=== PATIENT | male | born 1955 | race Caucasian/White ===

== ENCOUNTER 2020-01-25 11:39 | Emergency (ER) | payer BC, OTHER ==
--- OUTSIDE RECORDS SUMMARY | 2020-01-25 12:05 | XMS REPORT | Continuity of Care Document ---
:1955 Author Organization [facility] t Address [address] [place] [address] Care Team Providers Name Role Phone Master MULTANI Attending Clinician Problems This patient has no known problems. Allergies, Adverse Reactions, Alerts This patient has no known allergies or adverse reactions. Medications This patient has no known medications. Procedures This patient has no known procedures. Encounters Start End Encounter Admission Attending Care Care Encounter Source Date/Time Date/Time Type Type Clinicians Facility Department ID 2019-08-09 2019-08-09 Refill JOSIE Thao [id number] 00:00:00 00:00:00 Gonzalo Jefry [id number] [place] [id number] Profess[facility] [phone] [facility] 2019-06-15 2019-06-15 Refill JOSIE Thao [id number] 00:00:00 00:00:00 Gonzalo Joneston [id number] [place] [id number] [facility] [phone] [facility] 220 Building 2019-02-11 2019-02-11 Office JOSIE Thao [id number] 09:00:50 09:52:56 Visit Gonzalo Jefry [id number] [place] [id number] [facility] [phone] [facility] 220 [facility] Results This patient has no known results.
--- NOTE | 2020-01-25 13:30 | EDPHYS ---
Physician Documentation [facility] Name: Epifanio Crockett Age: 64 yrs Sex: Male : 1955 Arrival Date: 01/25/2020 Time: 11:42 Bed 24 Private MD: ED Physician Delroy Kelsey HPI: 01/24 13:42 This 64 yrs old Male presents to ER via Ambulatory with complaints of Foot snw Problem. 13:42 Onset: The symptoms/episode began/occurred suddenly, 2 month(s) ago, and became snw persistent. Associated signs and symptoms: Pertinent positives: The patient does not have any pertinent positive signs or symptoms associated with pediatric illness. Modifying factors: The patient symptoms are alleviated by nothing. The patient has not experienced similar symptoms in the past. The patient has been recently seen by a physician: the patient's primary care provider, with similar presenting complaints, and apparently given a diagnosis of healed puncture wound with foreign body, X-rays were performed, pt was supposed to be sent to [facility] in [place]. Historical: - Allergies: 12:24 No Known Allergies; aa5 - PMHx: 12:24 Hypertension; Diabetes - NIDDM; Neuropathy; aa5 - PSHx: 12:24 shoulder; ankle; Hernia repair; aa5 - Immunization history:: Adult Immunizations unknown. - Social history:: Smoking status: Patient denies any tobacco usage or history of. ROS: 13:41 Constitutional: Negative for fever, chills, and weight loss, Eyes: Negative for injury, snw pain, redness, and discharge, ENT: Negative for injury, pain, and discharge, Neck: Negative for injury, pain, and swelling, Cardiovascular: Negative for chest pain, palpitations, and edema, Respiratory: Negative for shortness of breath, cough, wheezing, and pleuritic chest pain, Abdomen/GI: Negative for abdominal pain, nausea, vomiting, diarrhea, and constipation, Back: Negative for injury and pain, : Negative for injury, bleeding, discharge, and swelling, MS/Extremity: Negative for injury and deformity, Neuro: Negative for headache, weakness, numbness, tingling, and seizure, Psych: Negative for depression, anxiety, suicide ideation, homicidal ideation, and hallucinations. 13:41 Skin: Positive for puncture wound infection. Exam: 13:26 Constitutional: This is a well developed, well nourished patient who is awake, alert, snw and in no acute distress. Head/Face: Normocephalic, atraumatic. Eyes: Pupils equal round and reactive to light, extra-ocular motions intact. Lids and lashes normal. Conjunctiva and sclera are non-icteric and not injected. Cornea within normal limits. Periorbital areas with no swelling, redness, or edema. ENT: Nares patent. No nasal discharge, no septal abnormalities noted. Tympanic membranes are normal and external auditory canals are clear. Oropharynx with no redness, swelling, or masses, exudates, or evidence of obstruction, uvula midline. Mucous membranes moist. Neck: Trachea midline, no thyromegaly or masses palpated, and no cervical lymphadenopathy. Supple, full range of motion without nuchal rigidity, or vertebral point tenderness. No Meningismus. Chest/axilla: Normal chest wall appearance and motion. Nontender with no deformity. No lesions are appreciated. Cardiovascular: Regular rate and rhythm with a normal S1 and S2. No gallops, murmurs, or rubs. Normal PMI, no JVD. No pulse deficits. Respiratory: Lungs have equal breath sounds bilaterally, clear to auscultation and percussion. No rales, rhonchi or wheezes noted. No increased work of breathing, no retractions or nasal flaring. Abdomen/GI: Soft, non-tender, with normal bowel sounds. No distension or tympany. No guarding or rebound. No evidence of tenderness throughout. Back: No spinal tenderness. No costovertebral tenderness. Full range of motion. MS/ Extremity: Pulses equal, no cyanosis. Neurovascular intact. Full, normal range of motion. Neuro: Awake and alert, GCS 15, oriented to person, place, time, and situation. Cranial nerves II-XII grossly intact. Motor strength 5/5 in all extremities. Sensory grossly intact. Cerebellar exam normal. Normal gait. Psych: Awake, alert, with orientation to person, place and time. Behavior, mood, and affect are within normal limits. 13:26 Skin: Appearance: normal except for affected area, injury, puncture(s), that are superficial, of the right foot, pt states wound is 2 months old, that he has been [facility] the [facility] and was told to come here for surgical procedure. Pt has not had fever, denies pain. Pt angry that he has been NPO since 4pm yesterday. VSS.. Vital Signs: 12:22 BP 118 / 67; Pulse 65; Resp 18 S; Temp 98.4(O); Pulse Ox 99% on R/A; Weight 88.9 kg aa5 (R); Height 5 ft. 10 in. (177.80 cm) (R); Pain 0/10; 13:15 BP 128 / 84; Pulse 67; Resp 18; Pulse Ox 99% ; em 12:22 Body Mass Index 28.12 (88.90 kg, 177.80 cm) aa5 MDM: 13:14 Patient medically screened. snw 13:34 Data reviewed: vital signs, nurses notes. Data interpreted: Pulse oximetry: on room air snw is 99 %. Interpretation: normal. Counseling: I had a detailed discussion with the patient and/or guardian regarding: the historical points, exam findings, and any diagnostic results supporting the discharge/admit diagnosis, the need for outpatient follow up, to return to the emergency department if symptoms worsen or persist or if there are any questions or concerns that arise at home. Special discussion: I discussed in detail with the patient the higher chance of wound infection based on his presenting history. Based on the history and exam findings, there is no indication for further emergent testing or inpatient evaluation. I discussed with the patient/guardian the need to see the primary care provider for further evaluation of the symptoms. Administered Medications: No medications were administered Disposition: 16:23 Co-signature as Attending Physician, Delroy Kelsey MD. rn Disposition: 01/25/20 13:29 Discharged to Home. Impression: Encounter for screening, unspecified. - Condition is Stable. - Medication Reconciliation Form, Thank You Letter, Antibiotic Education, Prescription Opioid Use form. - Follow up: Private Physician; When: 1 - 2 days; Reason: Recheck today's complaints, Continuance of care, Re-evaluation by your physician. Follow up: Emergency Department; When: As needed; Reason: Worsening of condition. Signatures: Oliva Bonilla, NINI-C MRI MANAGER-Csnw Tre Ohara, RN GERI Delroy Kelsey MD MD rn Calderon, Audri, RN RN aa5 Corrections: (The following items were deleted from the chart) 13:45 13:29 01/25/2020 13:29 Discharged to Home. Impression: Encounter for screening, em unspecified. Condition is Stable. Forms are Medication Reconciliation Form, Thank You Letter, Antibiotic Education, Prescription Opioid Use. Follow up: Private Physician; When: 1 - 2 days; Reason: Recheck today's complaints, Continuance of care, Re-evaluation by your physician. Follow up: Emergency Department; When: As needed; Reason: Worsening of condition. snw
--- NOTE | 2020-01-25 13:30 | ER ---
Nurse's Notes [facility] Name: Epifanio Crockett Age: 64 yrs Sex: Male : 1955 Arrival Date: 01/25/2020 Time: 11:42 Bed 24 Private MD: Diagnosis: Encounter for screening, unspecified Presentation: 01/24 12:22 Chief complaint: Patient states: "I stepped on something about 2 months ago and went to [facility] [place] and they put me on antibiotics but now I think it's getting worse". Pt reports wound to right foot. Coronavirus screen: Client denies travel out of the [place] in the last 14 days. At this time, the client does not indicate any symptoms associated with coronavirus-19. Ebola Screen: Patient negative for fever greater than or equal to 101.5 degrees Fahrenheit, and additional compatible Ebola Virus Disease symptoms. Initial Sepsis Screen: Does the patient meet any 2 criteria? No. Patient's initial sepsis screen is negative. Does the patient have a suspected source of infection? No. Patient's initial sepsis screen is negative. Risk Assessment: Do you want to hurt yourself or someone else? Patient reports no desire to harm self or others. Onset of symptoms was December 2019. 12:22 Acuity: KIANNA 3 aa5 12:22 Method Of Arrival: Ambulatory aa5 Historical: - Allergies: 12:24 No Known Allergies; aa5 - PMHx: 12:24 Hypertension; Diabetes - NIDDM; Neuropathy; aa5 - PSHx: 12:24 shoulder; ankle; Hernia repair; aa5 - Immunization history:: Adult Immunizations unknown. - Social history:: Smoking status: Patient denies any tobacco usage or history of. Screenin:20 Abuse screen: Denies threats or abuse. Nutritional screening: No deficits noted. em Tuberculosis screening: No symptoms or risk factors identified. Fall Risk None identified. Assessment: 13:20 General: Appears in no apparent distress. comfortable, Behavior is calm, cooperative, em appropriate for age, Denies fever. Pain: Denies pain. Neuro: Level of Consciousness is awake, alert, obeys commands, Oriented to person, place, time, situation, Appropriate for age. Cardiovascular: Capillary refill < 3 seconds Patient's skin is warm and dry. Respiratory: Airway is patent Respiratory effort is even, unlabored, Respiratory pattern is regular, symmetrical. Derm: Skin is intact, is healthy with good turgor, Skin is pink, warm \\T\\ dry. Musculoskeletal: Capillary refill < 3 seconds, Range of motion: intact in all extremities. Injury Description: reports wound in right foot that happened about 2 months ago, [facility]. Vital Signs: 12:22 BP 118 / 67; Pulse 65; Resp 18 S; Temp 98.4(O); Pulse Ox 99% on R/A; Weight 88.9 kg aa5 (R); Height 5 ft. 10 in. (177.80 cm) (R); Pain 0/10; 13:15 BP 128 / 84; Pulse 67; Resp 18; Pulse Ox 99% ; em 12:22 Body Mass Index 28.12 (88.90 kg, 177.80 cm) aa5 ED Course: 11:42 Patient arrived in ED. ag5 12:22 Arm band placed on. aa5 12:25 Triage completed. aa5 13:14 Tre Ohara, RN is Primary Nurse. em 13:14 Oliva Bonilla FNP-C is PHCP. snw 13:14 Delroy Kelsey MD is Attending Physician. snw 13:20 Patient has correct armband on for positive identification. Bed in low position. Call em light in reach. 13:33 No provider procedures requiring assistance completed. em 13:41 Patient did not have IV access during this emergency room visit. em Administered Medications: No medications were administered Outcome: 13:29 Discharge ordered by MD. snw 13:44 Medical screen evaluation completed per provider. Patient declined treatment. em 13:44 Condition: stable 13:44 Instructed on follow up and referral plans. Demonstrated understanding of follow-up em care. 13:45 Patient left the ED. em Signatures: Oliva Bonilla FNP-C [employer] JOGGER-Csnw Tre Ohara RN RN em Floresita Calzada RN RN aa5 Abdelrahman Mohr ag5 Corrections: (The following items were deleted from the chart) 12:27 12:22 BP 118 / 67; Pulse 65bpm; Resp 18bpm; Spontaneous; Pulse Ox 99% RA; Temp 98.4F aa5 Oral; aa5
[2020-01-28 07:56] VITALS: TEMP 98.4; O2SAT 99
[2020-01-28 07:59] VITALS: BP 128/84
== END 2020-01-25 13:45 | disposition home or self-care (01) ==
LOC: ER 11:39
DX: Z13.9 Encounter for screening, unspecified (principal); Z53.29 Procedure and treatment not carried out because of patient's decision for other reasons; I10 Essential (primary) hypertension
CPT/HCPCS: 99281